=== PATIENT | male | born 1955 | race African-American/Black ===

== ENCOUNTER 2021-12-14 15:36 | Emergency (ER) | payer MEDICARE, OTHER ==
[~2021-12-14] VITALS: Ht 188 cm; Wt 95.0 kg
[2021-12-14] MEDS ORDERED: IBUPROFEN 600MG TABLET PO ONE (16:30)
[2021-12-14] MEDS ORDERED: TOPUD MT (19:04)
[2021-12-14] MEDS ORDERED: IBUP-2029 MT (19:04)
[2021-12-14 21:15] VITALS: BP 129/74
== END 2021-12-14 21:40 | disposition home or self-care (01) ==
LOC: ER 15:36
DX: S00.83XA Contusion of other part of head, initial encounter (principal); M79.642 Pain in left hand; R51.9 Headache, unspecified; Y04.0XXA Assault by unarmed brawl or fight, initial encounter; Y93.89 Activity, other specified; Y92.89 Other specified places as the place of occurrence of the external cause; Y99.8 Other external cause status
CPT/HCPCS: 29125; 70486; 73130; 73552; 99284